=== PATIENT | female | born 1985 | race Caucasian/White ===

== ENCOUNTER → 2019-09-08 10:53 | Outpatient (BNVA) | payer SELFPAY | PROVIDERS: Family Provider Family Medicine; PCP Family Medicine; Visit Provider Nurse Practitioner Family | DX: J11.1 Influenza due to unidentified influenza virus with other respiratory manifestations (principal); K52.9 Noninfective gastroenteritis and colitis, unspecified | CPT/HCPCS: 87804 ==

== ENCOUNTER → 2020-11-06 13:04 | Outpatient (BNVA) | payer OTHER, SELFPAY | PROVIDERS: Family Provider Family Medicine; Referring Provider Preventive Medicine Occupational Medicine; Visit Provider Orthopaedic Surgery | DX: M54.5 Low back pain (principal); M48.8X7 Other specified spondylopathies, lumbosacral region | CPT/HCPCS: 72110 ==

== ENCOUNTER 2020-11-14 07:51 | Outpatient (CLI) | payer OTHER, SELFPAY ==
--- NOTE | 2020-11-14 08:00 | MR_ITS ---
WS: [id number] MRI LUMBAR SPINE NONCONTRAST TECHNIQUE: Sagittal T1, T2 and STIR imaging. Axial T1 and T2 imaging. CLINICAL INFORMATION: LOW BACK SPRAIN S33.5 COMPARISON: None. FINDINGS: Mild lumbar curve. No acute compression. Mild disc bulging L3-L5. Slight retrolisthesis L5 on S1. L1-L2: Normal. L2-L3: Moderate facet arthropathy. Spinal canal and foramen are patent. L3-L4: Left eccentric annular bulging. Impingement traversing left L4 nerve root. Mild bilateral fora evangelist narrowing. Mild to moderate facet arthropathy. L4-L5: Mild annular bulging with a shallow central disc protrusion. Impingement on traversing L5 nerv e roots. Mild right and no significant left foraminal narrowing. Moderate facet arthropathy. L5-S1: Slight retrolisthesis L5 on S1. Right pericentral disc protrusion slightly impinges the fred sing right S1 nerve root. Mild bilateral foraminal narrowing. Moderate facet arthropathy. Visualized pelvic bony structures: Normal. Paravertebral soft tissues: Normal. MR/MR lumbar spine wo con* [id number] IMPRESSION: 1. Mild lumbar curve. No acute compression. 2. Left eccentric disc bulging L3-4 impinges the traversing left L4 nerve root in the subarticular recess. 3. Shallow central disc bulging L4-5 slightly impinges the traversing L5 nerve roots bilaterally. 4. Shallow right pericentral disc protrusion L5-S1 impinges the traversing rig ht S1 nerve root. Recommend correlation for right S1 nerve root symptoms. 5. Mild bony foraminal narrowing more prominent at right L4-5 and bilateral L5 -S1.
== END 2020-11-14 07:52 | disposition home or self-care (01) ==
PROVIDERS: Visit Provider Preventive Medicine Occupational Medicine
DX: S33.5XXA Sprain of ligaments of lumbar spine, initial encounter (principal); X58.XXXA Exposure to other specified factors, initial encounter
CPT/HCPCS: 72148

== ENCOUNTER → 2022-11-13 09:36 | Outpatient (BNVA) | payer MEDICAID, SELFPAY | PROVIDERS: Visit Provider Nurse Practitioner Women's Health | DX: O09.899 Supervision of other high risk pregnancies, unspecified trimester; O10.919 Unspecified pre-existing hypertension complicating pregnancy, unspecified trimester | CPT/HCPCS: 80053; 80307; 81025; 85027; 86592; 86762; 86803; 86850; 86900; 87086; 87340; 87806 ==

== ENCOUNTER 2022-11-20 11:14 | Outpatient (CLI) | payer MEDICAID, SELFPAY ==
[2022-11-20 12:30] LABS: Urine Total Protein 4.5 mg/dL (0-150)
[2022-11-20 12:51] LABS: Total Volume, Urine 1525 mL; Urine Total Protein 24 Hour 68.6 mg/24hr (0-150)
== END 2022-11-20 11:15 | disposition home or self-care (01) ==
LOC: LAB 11:17
PROVIDERS: Visit Provider Nurse Practitioner Women's Health
DX: O09.899 Supervision of other high risk pregnancies, unspecified trimester (principal); O10.919 Unspecified pre-existing hypertension complicating pregnancy, unspecified trimester; Z3A.00 Weeks of gestation of pregnancy not specified
CPT/HCPCS: 84156

== ENCOUNTER → 2022-11-26 08:55 | Outpatient (BNVA) | payer MEDICAID, SELFPAY | PROVIDERS: Visit Provider Obstetrics & Gynecology | DX: O09.899 Supervision of other high risk pregnancies, unspecified trimester (principal) | CPT/HCPCS: 81000; 87491; 87591; 87624 ==

== ENCOUNTER → 2023-01-05 14:26 | Outpatient (BNVA) | payer MEDICAID, SELFPAY | PROVIDERS: Visit Provider Obstetrics & Gynecology | DX: O09.899 Supervision of other high risk pregnancies, unspecified trimester (principal) | CPT/HCPCS: 81000; 87086 ==

== ENCOUNTER → 2023-01-28 15:27 | Outpatient (BNVA) | payer MEDICAID, SELFPAY | PROVIDERS: Visit Provider Obstetrics & Gynecology | DX: O09.899 Supervision of other high risk pregnancies, unspecified trimester (principal) | CPT/HCPCS: 81000 ==

== ENCOUNTER → 2023-03-03 10:20 | Outpatient (BNVA) | payer MEDICAID, SELFPAY | PROVIDERS: Visit Provider Obstetrics & Gynecology | DX: O09.899 Supervision of other high risk pregnancies, unspecified trimester (principal) | CPT/HCPCS: 82950; 84315; 85025 ==

== ENCOUNTER → 2023-03-31 08:00 | Outpatient (BNVA) | payer MEDICAID, SELFPAY | PROVIDERS: Visit Provider Obstetrics & Gynecology | DX: O09.899 Supervision of other high risk pregnancies, unspecified trimester (principal) | CPT/HCPCS: 82951; 82952; 84315 ==

== ENCOUNTER → 2023-04-28 09:16 | Outpatient (BNVA) | payer MEDICAID, SELFPAY | PROVIDERS: Visit Provider Nurse Practitioner Women's Health | DX: O09.899 Supervision of other high risk pregnancies, unspecified trimester (principal) | CPT/HCPCS: 84315; 87081 ==

== ENCOUNTER 2023-05-19 10:47 | Outpatient (CLI) | payer MEDICAID, SELFPAY ==
[2023-05-19 10:47] VITALS: BMI 37.0
[2023-05-19 11:09] VITALS: BP 144/92; PULSE 76
[2023-05-19 11:31] VITALS: BP 164/87; PULSE 75
[2023-05-19 11:50] VITALS: BP 163/87; PULSE 84
[2023-05-19 12:10] VITALS: BP 140/93; PULSE 77
[2023-05-19 12:30] VITALS: BP 174/88; PULSE 87
[2023-05-19 12:50] VITALS: BP 142/84; PULSE 83
== END 2023-05-19 13:00 | disposition home or self-care (01) ==
LOC: OPOB 10:53 → OBGYN 10:54
PROVIDERS: Visit Provider Obstetrics & Gynecology
DX: O16.9 Unspecified maternal hypertension, unspecified trimester (principal); Z3A.00 Weeks of gestation of pregnancy not specified
CPT/HCPCS: 59025; 84315; 99211

== ENCOUNTER 2023-05-20 15:07 | Inpatient (IN) | payer MEDICAID, SELFPAY ==
[2023-05-20] VITALS (26 sets, daily range): BP systolic 133–167; BP diastolic 68–92; PULSE 78–96; RESP 16–18; TEMP 36.3; O2SAT 98–99; BMI 37.0
--- NOTE | 2023-05-20 16:15 | PM.OBGYHP ---
Providers/Chief Complaint Admitting Physician: Bairon Cardoza MD Primary EXCELSIOR MACHINE OPERATOR: Bairon Cardoza MD Chief Complaint: INDUCTION OF LABOR FOR ELEVATED BLOOD PRESSURES HPI EXCELSIOR MACHINE OPERATOR History of Present Illness May 20, 2023, 1615 OB ADMIT NOTE 37 y.o. EDC May 25, 2023 By LMP c/w sono at 39 w 2 d had elevated BPs when seen in clinic and in L&D on May 18, 2023 now admitted for labor induction no c/o no headaches, malaise, swelling no bleeding, fluid leakage + active movements POBHx: x one, uncomplicated PSHx: appendectomy Lumbar discectomy Meds: baby asa Vits NKDA Present Details : 2 Para: 1 Labs Rubella: Immune RPR: Negative GBS: Negative Medications/Allergies Home Medications Medication Instructions Recorded Confirmed Last Taken Type aspirin 325 mg tablet 325 mg PO DAILY 01/05/23 05/19/23 Unknown History prenat.vits,neil,bqd-biev-hkzkf 1 tab PO DAILY 01/05/23 05/19/23 Unknown History famotidine 20 mg tablet 20 mg PO BID #60 tabs 03/03/23 05/19/23 Unknown Rx magnesium 250 mg tablet 250 mg PO DAILY 05/05/23 05/19/23 Unknown History Allergies Allergy/AdvReac Type Severity Reaction Status Date / Time No Known Allergies Allergy Verified 05/19/23 09:50 PFSH EXCELSIOR MACHINE OPERATOR PFSH: Medical History Irregular menstrual bleeding No pertinent past medical history neghx: thyroid,dm,dvt/pe PCP: None Surgical History History of appendectomy History of lumbar discectomy L4-L5, L5-S1 Family History Denies family history of Colon cancer Ovarian cancer Diabetes Heart disease Hyperlipidemia Breast cancer Hypertension Uterine cancer Thyroid disease Stroke History History History 2 Term 1 0 Miscarriages/Ectopic 0 Living Children 1 Care HAI Calculator Estimated Delivery Date Method Current WG Current Estimate 05/25/23 LMP (Certain) 39w 2d Vitals/I&O/Wt Last Vital Signs Temp 97.3 F L 05/20/23 15:39 Pulse 91 05/20/23 21:20 Resp 18 05/20/23 17:25 BP 137/68 05/20/23 21:20 Pulse Ox 98 05/20/23 20:42 O2 Del Method Room Air 05/20/23 16:06 Weight last 48 hrs Weight 223 lb Weight 223 lb Physical Exam Narrative: Weight 220 lbs; 5?5? BPs 146 / 89, 140 / 79 Comfortable Awake, alert Lungs: clear Cor: RRR Abd: soft, nontender FH 37 cm, cephalic Cx: 1 cm / thick / high Ext: no edema External monitor: heart tracing good variability, + accelerations Data 05/20/23 15:45 Results Labs OB ([facility]): Obstetrics US 01/01/23 Blood Type O Positive 11/13/22 Antibody Screen Negative 11/13/22 Hct 36.3 % (36-47) 05/20/23 Hgb 11.90 g/dL (11.27-16.99) 05/20/23 Rho(D) Type Positive 11/13/22 Plt Count 288 10^3/cmm (157-399) 05/20/23 Hep Bs Antigen Non-reactive (Nonreactive) 11/13/22 Hepatitis C Antibody Non-reactive (Nonreactive) 11/13/22 Rubella IgG Antibody 76.4 IU/mL (0.0-10.0) H 11/13/22 RPR Nonreactive (Nonreactive) 11/13/22 HIV 1&2 Ab & HIV 1 Ag Non-reactive (Non-Reactiv) 11/13/22 Gest Glucose Tolerance mg/dL 03/31/23 HCG, Qual Positive (Negative) H 11/13/22 Urine Opiates Screen Negative ng/mL (Negative) 11/13/22 Ur Barbiturates Screen Negative ng/mL (Negative) 11/13/22 Ur Phencyclidine Scrn Negative ng/mL (Negative) 11/13/22 Ur Amphetamines Screen Negative ng/mL (Negative) 11/13/22 U Benzodiazepines Scrn Negative ng/mL (Negative) 11/13/22 Urine Cocaine Screen Negative ng/mL (Negative) 11/13/22 U Marijuana (THC) Screen Negative ng/mL (Negative) 11/13/22 Micro Urine Specimen 01/05/23 Pap Smear Interpret See note 05/24/23 A&P Assessment and plan (1) Supervision of other high-risk : 39 w 2 d GBS negative (2) Hypertension affecting : Elevated BPs, mild Admitted for labor induction Plan Cytotec 25 ug intravaginal Attestations Medical Necessity Statement*: patient at 39 w 2 d, with mildly elevated BPs, admit for labor induction Coding Level of Care Code Acute Code for Chg Fwd Diagnoses Supervision of other high-risk O09.899 Hypertension affecting O16.9 Time Spent (min) 30
[2023-05-20] MEDS: miSOPROStol 100 mcg tablet 25 MCG VAGINAL ×2 (16:33→21:31)
[2023-05-20 16:53] LABS: Basophils % 0.2 %; Eosinophils # 0.1 10^3/uL (0.0-0.8); Eosinophils % 0.6 %; Hematocrit 36.3 % (36-47); Lymphocytes # 1.8 10^3/uL (0.8-4.8); Lymphocytes % 17.6 %; Mean Corpuscular HGB Conc 32.8 g/dL (30-55); Mean Corpuscular Hemoglobin 29.2 pg (27-33); Mean Platelet Volume 10.6 fL (7.4-10.4); Monocytes # 0.7 10^3/uL (0.2-0.9); Monocytes % 6.5 %; Neutrophils # 7.58 10^3/uL (1.8-7.7); Neutrophils % 74.5 %; Nucleated Red Blood Cells % 0 %; Platelet Count 288 10^3/cmm (157-399); Red Blood Count 4.08 10^6/uL (3.85-5.65); Red Cell Distribution Width 13.3 % (12.1-15.1); White Blood Count 10.17 10^3/uL (3.29-11.43)
--- NOTE | 2023-05-20 20:50 | P.PN_ITS ---
LATHE OPERATOR CONTACT LENS Subjective Subjective: Interval history: Fetus reassuring BPs 153 / 78, 157 / 80 UCs q 2-3 minutes, but patient not feeling these Cervix: 1 cm / 25% / -3 / posterior Plan repeat Cytotec 25 ug intravaginal Labor: Station: -3 Amniotic Membrane Status: Intact Monitor Mode: External Contraction Pattern: Rare Status: Category I Vitals/I&O/Wt Last Vital Signs Temp 97.3 F L 05/20/23 15:39 Pulse 90 05/20/23 21:40 Resp 18 05/20/23 17:25 BP 140/69 05/20/23 21:40 Pulse Ox 98 05/20/23 20:42 O2 Del Method Room Air 05/20/23 16:06 Weight last 48 hrs Weight 223 lb Weight 223 lb Data 05/20/23 15:45 Attestations Medical Necessity Statement*: patient at 39 w 2d; with mildly elevated BPs, admitted for labor induction Coding Level of Care Code Acute Code for Chg Fwd Diagnoses Time Spent (min) 20
[2023-05-21] VITALS (53 sets, daily range): BP systolic 124–189; BP diastolic 70–104; PULSE 68–109; RESP 16–17; TEMP 36.7–37.1; O2SAT 97–100; BMI 37.0
[2023-05-21] MEDS: dextrose 5%-lactated ringers 1,000 ML 125 ML IV (02:11)
[2023-05-21] MEDS: oxytocin 30 UNIT/500 ML BAG IV (02:11)
[2023-05-21] MEDS: lactated ringers 1,000 ML 999 ML IV ×2 (03:53→04:56)
[2023-05-21] MEDS: NIFEdipine ER (24 hr) 30 mg Tablet PO (04:32)
[2023-05-21] MEDS: ROPivacaine syringe 100 MG/50 ML SYRINGE 10 MG EPIDURAL (05:02)
--- NOTE | 2023-05-21 05:03 | P.ANES_ITS ---
Anesthesia Procedures Procedure/Date: 05/21/23 Epidural: Time Out Performed: Yes Consents Signed: Procedure Consent Consent: from patient, risks and benefits reviewed and patient agrees to proceed Lumbar Level: L3-L4 Epidural position: sitting Epidural procedure: sterile prep of area, 1% lidocaine to numb the area, 18 g needle, negative for p aresthesia passed, neg for paresthesia, test dose given, 1.5% xylocaine 1:200k epi, placed PCEA, no systemic response, sterile dressing applied, L.U.D. no apparent complications and 0.2% Ropiavacaine @ mls/hr (10) Additional Comments: CRISTELA at 4.5. negative blood/CSF upon apsiration. taped at 12 at skin.
--- NOTE | 2023-05-21 05:04 | ANES.PREANE2 ---
Pre-Anesthetic Assessment Height/Weight: Height 1.65 m Weight 101.151 kg Temp Pulse Resp BP Pulse Ox O2 Del Method 97.3 F L 82 16 176/104 99 Room Air 05/20/23 15:39 05/21/23 04:59 05/20/23 20:55 05/21/23 04:59 05/21/23 04:58 05/20/23 16:06 Preop Diagnosis: IUP epidural Familial anesthetic complications: none Was Beta Catarino taken within 24 hours: N/A Was Clonidine taken within 24 hours: N/A Social No alcohol and No tobacco Exam alert and oriented x 3 Airway Submandibular: within normal limits Cervical ROM: within normal limits Mallampati: Class II Dentition: full History/ROS No significant history except as noted CV/HEM Hypertension (gestational) GI Gastroesophageal Reflux Disease Anesthetic Plan ASA status: 3 Anesthesia: Anesthesia Evaluation and Regional (specify below) Medications/Allergies Home Medications Medication Instructions Recorded Confirmed Last Taken Type aspirin 325 mg tablet 325 mg PO DAILY 01/05/23 05/19/23 Unknown History prenat.vits,neil,luz-qsoi-xhwft 1 tab PO DAILY 01/05/23 05/19/23 Unknown History famotidine 20 mg tablet 20 mg PO BID #60 tabs 03/03/23 05/19/23 Unknown Rx magnesium 250 mg tablet 250 mg PO DAILY 05/05/23 05/19/23 Unknown History Allergies Allergy/AdvReac Type Severity Reaction Status Date / Time No Known Allergies Allergy Verified 05/19/23 09:50 Current Medications Generic Name Dose Route Start Last Admin Trade Name Freq PRN Reason Stop Dose Admin Dextrose/Lactated Ringer's 1,000 mls @ 125 mls/hr 05/20/23 21:00 05/21/23 03:53 Dextrose 5%-Lactated Ringers IV 0 mls/hr .Q8H SAVANNA Infusion Lactated Ringer's 1,000 mls @ 999 mls/hr 05/20/23 20:59 05/21/23 04:56 Lactated Ringers IV 999 mls/hr .Q1H1M PRN Administration See label comments Ropivacaine 100 mg in 50 mls @ 10 mls/hr 05/20/23 21:00 05/21/23 05:02 Naropin Syringe EPIDURAL 10 mls/hr .Q5H SAVANNA Administration Oxytocin 30 unit in 500 mls @ 1 mls/hr 05/21/23 01:45 05/21/23 03:15 Pitocin IV 4 milliunit/min .Q24H SAVANNA 4 mls/hr Titration Protocol 1 MILLIUNIT/MIN PFSH Anesthesia Medical History Irregular menstrual bleeding No pertinent past medical history neghx: thyroid,dm,dvt/pe PCP: None Surgical History History of appendectomy History of lumbar discectomy L4-L5, L5-S1 Family History Denies family history of Colon cancer Ovarian cancer Diabetes Heart disease Hyperlipidemia Breast cancer Hypertension Uterine cancer Thyroid disease Stroke Female Reproductive History : 2 Data Anesthesia 05/20/23 15:45 Short CBC 05/20/23 Range/Units 15:45 WBC 10.17 (3.29-11.43) 10^3/uL Hgb 11.90 (11.27-16.99) g/dL Hct 36.3 (36-47) % MCV 89.0 (85-98) fl Plt Count 288 (157-399) 10^3/cmm Neut % (Auto) 74.5 % Neut # (Auto) 7.58 (1.8-7.7) 10^3/uL Cardiac Studies: No Data to Display
[2023-05-21] MEDS: ondansetron 2 mg/ML SDV 2 mL 4 MG IVP (05:13)
[2023-05-21] MEDS: oxytocin 30 UNIT/500 ML BAG 600 UNIT IV (06:31)
--- NOTE | 2023-05-21 06:40 | P.PN_ITS ---
GEAR MILLING MACHINE SET UP OPERATOR Subjective Subjective: Interval history: May 21, 2023, 0640 DELIVERY NOTE , vigorous Normal placenta and cord Second-degree perineal laceration repaired EBL: 300 cc No complications Labor: Station: +2 Amniotic Membrane Status: Ruptured Monitor Mode: External Contraction Pattern: Irregular Status: Category I Vitals/I&O/Wt Last Vital Signs Temp 98.2 F 05/22/23 12:40 Pulse 86 05/22/23 12:40 Resp 16 05/22/23 12:40 BP 150/92 05/22/23 12:40 Pulse Ox 97 05/21/23 22:40 O2 Del Method Room Air 05/21/23 22:40 Weight last 48 hrs Weight 223 lb Physical Exam Urinary Catheter Management: Corado: Cath Placed During This Visit: yes, but has since been removed by the nurse Reason for Continuing Indwelling Catheter: Accurate Measurement of Urinary Output in Critically Ill Patients Urinary Catheter Date of Insertion: 05/21/23 Urinary Catheter Time of Insertion: 05:30 Date Urinary Catheter Removed: 05/21/23 Time Urinary Catheter Discontinued: 06:13 Data 05/21/23 21:35 A&P Assessment and plan (1) Vaginal delivery: (2) Second degree perineal laceration: repaired Attestations Medical Necessity Statement*: patient s/p vaginal delivery, plan care Coding Level of Care Code Acute Code for Chg Fwd Diagnoses Vaginal delivery O80 Second degree perineal laceration O70.1 Time Spent (min) 60
--- NOTE | 2023-05-21 06:40 | PM.DELIVERY ---
Delivery Note: Date of delivery: May 21, 2023 Pre-delivery diagnoses: 39 w 2 d elevated BPs admitted for labor induction Post-delivery diagnoses: 39 w 2 d elevated BPs admitted for labor induction vaginal delivery second-degree perineal laceration repaired Procedure: labor induction vaginal delivery second-degree perineal laceration repaired Op report anesthesia: Epidural Delivering Physician: Bairon Cardoza MD Estimated blood loss (mL): 300 Findings: , vigorous Normal placenta and cord Second-degree perineal laceration repaired EBL: 300 cc No complications Pre-Delivery Course: normal labor progress Delivery: vaginal Post-Delivery Status: good History History History 2 Term 1 0 Miscarriages/Ectopic 0 Living Children 1 A&P Assessment and plan (1) Vaginal delivery: (2) Second degree perineal laceration: repaired Coding Level of Care Code Acute Code for Chg Fwd Diagnoses Vaginal delivery O80 Second degree perineal laceration O70.1 Time Spent (min) 60
--- NOTE | 2023-05-21 08:06 | PM.MISC ---
Miscellaneous Note Purpose of Documentation: pain Note: Pain of contraction increasing, bupivicaine 0.25% 10 cc and catheter tugged back a cm with adequate response, patient elected to continue with current epidural over replacing it
[2023-05-21] MEDS: docusate sodium 100 mg Capsule PO ×2 (09:24→20:48)
[2023-05-21] MEDS: ibuprofen 800 mg tablet PO ×3 (09:24→20:48)
[2023-05-21] MEDS: prenatal vitamin Capsule 1 CAP PO (09:25)
[2023-05-21 22:09] LABS: Hematocrit 34.7 % (36-47); Mean Corpuscular HGB Conc 32.9 g/dL (30-55); Mean Corpuscular Volume 88.3 fl (85-98); Mean Platelet Volume 10.4 fL (7.4-10.4); Platelet Count 248 10^3/cmm (157-399); Red Blood Count 3.93 10^6/uL (3.85-5.65); Red Cell Distribution Width 13.2 % (12.1-15.1); White Blood Count 15.78 10^3/uL (3.29-11.43)
[2023-05-22 04:32] VITALS: BP 154/95; PULSE 101; RESP 16; TEMP 36.7
[2023-05-22 04:48] VITALS: BP 146/89
--- NOTE | 2023-05-22 08:00 | ANE.PACU2 ---
Inpatient post-anesthesia follow up: Airway intact: Yes Vital signs: Temperature 98.2 F Pulse Rate 86 Respiratory Rate 16 Blood Pressure 150/92 Pulse Oximetry 97 Oxygen Delivery Me thod Room Air Oxygen Flow Rate Fraction of Inspir ed Oxygen Hydration adequate: Yes Nausea and vomiting: No Pain level: 1 Mental status: Baseline
[2023-05-22] MEDS: docusate sodium 100 mg Capsule PO (08:47)
[2023-05-22] MEDS: prenatal vitamin Capsule 1 CAP PO (08:47)
[2023-05-22] MEDS: ibuprofen 800 mg tablet PO (08:48)
[2023-05-22 09:05] VITALS: BP 156/95; PULSE 78; RESP 16; TEMP 36.7
--- NOTE | 2023-05-22 11:50 | P.DS_ITS ---
Discharge Providers DOUGHNUT ICER MACHINE Date of Admission: 05/20/23 15:07 Date of Discharge: 05/22/23 Attending Provider at Admission: Bairon Cardoza MD Attending Provider at Discharge: Bairon Cardoza MD Consults: none Primary DOUGHNUT ICER MACHINE: Bairon Cardoza MD Diagnoses at Discharge Discharge Diagnosis (1) Vaginal delivery: Details from hospital stay: patient admitted at 39 w 2 d for labor induction due to elevated BPs had normal labor progress vaginal delivery with second-degree perineal laceration repaired patient did well and was discharged home on day #1 Status: Acute Reason for Visit Reason for Visit: INDUCTION OF LABOR FOR ELEVATED BLOOD PRESSURES Brief History: 37 y.o. EDC May 25, 2023 at 39 w 2 d had elevated BPs when seen in clinic and in L&D on May 18, 2023 admitted for labor induction Hospital Course Hospital Course had normal labor progress vaginal delivery with second-degree perineal laceration repaired patient did well and was discharged home on day #1 Information Peripartum Data: Delivery Method: Vaginal Laceration description: Perineal - 2nd Degree Episiotomy description: None complications: none Physical Exam Narrative: afebrile, VS normal comfortable, awake, alert Abd: soft, nontender. fundus firm Ext: no edema; nontender Urinary Catheter Management: Corado: Cath Placed During This Visit: yes, but has since been removed by the nurse Reason for Continuing Indwelling Catheter: Accurate Measurement of Urinary Output in Critically Ill Patients Urinary Catheter Date of Insertion: 05/21/23 Urinary Catheter Time of Insertion: 05:30 Date Urinary Catheter Removed: 05/21/23 Time Urinary Catheter Discontinued: 06:13 History History History 2 Term 1 0 Miscarriages/Ectopic 0 Living Children 1 Discharge Data Studies Completed and Pending Laboratory Results WBC 15.78 10^3/uL (3.29-11.43) H 05/21/23 21:35 RBC 3.93 10^6/uL (3.85-5.65) 05/21/23 21:35 Hgb 11.40 g/dL (11.27-16.99) 05/21/23 21:35 Hct 34.7 % (36-47) L 05/21/23 21:35 MCV 88.3 fl (85-98) 05/21/23 21:35 MCH 29.0 pg (27-33) 05/21/23 21:35 MCHC 32.9 g/dL (30-55) 05/21/23 21:35 RDW 13.2 % (12.1-15.1) 05/21/23 21:35 Plt Count 248 10^3/cmm (157-399) 05/21/23 21:35 MPV 10.4 fL (7.4-10.4) 05/21/23 21:35 Neut % (Auto) 74.5 % 05/20/23 15:45 Lymph % (Auto) 17.6 % 05/20/23 15:45 Piatt % (Auto) 6.5 % 05/20/23 15:45 Eos % (Auto) 0.6 % 05/20/23 15:45 Baso % (Auto) 0.2 % 05/20/23 15:45 Neut # (Auto) 7.58 10^3/uL (1.8-7.7) 05/20/23 15:45 Lymph # (Auto) 1.8 10^3/uL (0.8-4.8) 05/20/23 15:45 Piatt # (Auto) 0.7 10^3/uL (0.2-0.9) 05/20/23 15:45 Eos # (Auto) 0.1 10^3/uL (0.0-0.8) 05/20/23 15:45 Baso # (Auto) 0.0 10^3/uL (0.0-0.1) 05/20/23 15:45 Nucleated RBC % (auto) 0 % 05/20/23 15:45 Nucleated RBCs # 0.0 /100WBC 05/20/23 15:45 Blood Type Cancelled 05/20/23 15:45 Rho(D) Type Cancelled 05/20/23 15:45 Antibody Screen Cancelled 05/20/23 15:45 Procedures Performed labor induction vaginal delivery second-degree perineal laceration repaired Vitals Last Vital Signs Temp 98.2 F 05/22/23 12:40 Pulse 86 05/22/23 12:40 Resp 16 05/22/23 12:40 BP 150/92 05/22/23 12:40 Pulse Ox 97 05/21/23 22:40 O2 Del Method Room Air 05/21/23 22:40 Results Labs OB ([facility]): Obstetrics US 01/01/23 Blood Type O Positive 11/13/22 Antibody Screen Negative 11/13/22 Hct 34.7 % (36-47) L 05/21/23 Hgb 11.40 g/dL (11.27-16.99) 05/21/23 Rho(D) Type Positive 11/13/22 Plt Count 248 10^3/cmm (157-399) 05/21/23 Hep Bs Antigen Non-reactive (Nonreactive) 11/13/22 Hepatitis C Antibody Non-reactive (Nonreactive) 11/13/22 Rubella IgG Antibody 76.4 IU/mL (0.0-10.0) H 11/13/22 RPR Nonreactive (Nonreactive) 11/13/22 HIV 1&2 Ab & HIV 1 Ag Non-reactive (Non-Reactiv) 11/13/22 Gest Glucose Tolerance mg/dL 03/31/23 HCG, Qual Positive (Negative) H 11/13/22 Urine Opiates Screen Negative ng/mL (Negative) 11/13/22 Ur Barbiturates Screen Negative ng/mL (Negative) 11/13/22 Ur Phencyclidine Scrn Negative ng/mL (Negative) 11/13/22 Ur Amphetamines Screen Negative ng/mL (Negative) 11/13/22 U Benzodiazepines Scrn Negative ng/mL (Negative) 11/13/22 Urine Cocaine Screen Negative ng/mL (Negative) 11/13/22 U Marijuana (THC) Screen Negative ng/mL (Negative) 11/13/22 Micro Urine Specimen 01/05/23 Pap Smear Interpret See note 11/26/22 Discharge Plan Discharge Patient Disposition: Home Condition: Stable Prescriptions: Continued prenat.vits,neil,rac-cicv-yxtma Tablet 1 tab PO DAILY famotidine 20 mg tablet 20 mg PO BID Qty: 60 2RF magnesium 250 mg tablet 250 mg PO DAILY Discontinued aspirin 325 mg tablet 325 mg PO DAILY Discharge Orders: Discharge Order (Routine); Ordered 05/22/23 Ordered By: Bairon Cardoza Referrals: Bairon Cardoza MD [Physician] - 6 Weeks (6 WEEKS FOLLOW UP APPOINTMENT June AT 3PM) Discharge Diet: Usual diet Discharge Activity: Resume usual activity Patient Instructions: Depression (GEN), Abnormal (Dysfunctional) Uterine Bleeding (GEN), Bleeding (GEN), Preeclampsia and Eclampsia After Delivery (GEN), OB Food/Drug Interaction Guide, OB Care at Home, Opioid Safety, OB Proud Parent Packet, OB Vaginal Deliveries, OB Vaginal Deliveries - [facility], Abnormal Bleeding Discharge Attestations DOUGHNUT ICER MACHINE Time Spent in Discharge Care*: less than 30 min Coding Level of Care Code Acute Code for Chg Fwd Diagnoses Vaginal delivery O80 Time Spent (min) 20
--- NOTE | 2023-05-22 11:50 | PM.OBGYPN ---
LOCKSTITCH MACHINE OPERATOR Subjective Subjective: Interval history: no c/o no bleeding, pain eating, voiding, ambulating well caring for without any problems Labor: Station: +2 Amniotic Membrane Status: Ruptured Monitor Mode: External Contraction Pattern: Irregular Status: Category I Vitals/I&O/Wt Last Vital Signs Temp 98.2 F 05/22/23 12:40 Pulse 86 05/22/23 12:40 Resp 16 05/22/23 12:40 BP 150/92 05/22/23 12:40 Pulse Ox 97 05/21/23 22:40 O2 Del Method Room Air 05/21/23 22:40 Weight last 48 hrs Weight 223 lb Physical Exam Narrative: afebrile, VS normal comfortable, awake, alert Abd: soft, nontender. fundus firm Ext: no edema; nontender Urinary Catheter Management: Corado: Cath Placed During This Visit: yes, but has since been removed by the nurse Reason for Continuing Indwelling Catheter: Accurate Measurement of Urinary Output in Critically Ill Patients Urinary Catheter Date of Insertion: 05/21/23 Urinary Catheter Time of Insertion: 05:30 Date Urinary Catheter Removed: 05/21/23 Time Urinary Catheter Discontinued: 06:13 Data 05/21/23 21:35 A&P Assessment and plan (1) Vaginal delivery: PPD #1 doing well discharge home today instructions and precautions given call/return if fever, chills, headache, blurry vision, nausea, vomiting, abdominal pain; vaginal bleeding or discharge; shortness of breath, chest pain, leg pains or swelling; inability to void, perineal pain or swelling; feelings of depression or mood changes; thoughts of suicide or harming others; inability to care for baby. f/u in 6 weeks or PRN Attestations Medical Necessity Statement*: patient s/p vaginal delivery, plan discharge home today Coding Level of Care Code Acute Code for Chg Fwd Diagnoses Vaginal delivery O80 Time Spent (min) 20
[2023-05-22 12:40] VITALS: BP 150/92; PULSE 86; RESP 16; TEMP 36.8
== END 2023-05-22 12:45 | disposition home or self-care (01) | DRG 807 ==
LOC: OBGYN 15:08
PROVIDERS: Absent Provider Obstetrics & Gynecology; Admitting Provider Obstetrics & Gynecology; Referring Provider Obstetrics & Gynecology; Visit Provider Obstetrics & Gynecology
DX: O16.4 Unspecified maternal hypertension, complicating childbirth (principal); Z37.0 Single live birth; O70.1 Second degree perineal laceration during delivery; Z3A.39 39 weeks gestation of pregnancy
CPT/HCPCS: 36415; 51702; 59025; 59409; 85025; 85027; J2405; J2590; J2795; J7120; J7121

== ENCOUNTER 2023-07-09 08:49 | Day surgery (SDC) | payer MEDICAID, SELFPAY ==
--- NOTE | 2023-07-08 19:53 | W.PM.OPSFHP ---
Same Day Surgery H&P Indication for Procedure/HPI DATE OF PROCEDURE: July 09, 2023 CHIEF COMPLAINT/INDICATIONFOR SURGICAL PROCEDURE: Desires permanent sterilization PREOP DIAGNOSIS: Desires permanent sterilization PLANNED PROCEDURE: Operation Date: 07/09/23 10:05 Proposed Procedures p Laparoscopic bilateral partial salpingectomy 98441,Z30.2(Bilateral) - Bairon Cardoza MD 37 y.o. wants permanent sterilization now scheduled for laparoscopic bilateral partial salpingectomy Medications/Allergies* Home Medications Medication Instructions Recorded Confirmed Type prenat.vits,neil,yhb-ivjx-nwmfi 1 tab PO DAILY 01/05/23 07/08/23 History Allergies/Adverse Reactions Allergy/AdvReac Type Severity Reaction Status Date / Time No Known Allergies Allergy Verified 07/08/23 11:22 Pertinent History/Comorbid Conditions* Medical History (Updated 06/18/23 @ 18:00 by Bairon Cardoza MD) Vaginal delivery Second degree perineal laceration Hypertension affecting Supervision of other high-risk No pertinent past medical history neghx: thyroid,dm,dvt/pe PCP: None Irregular menstrual bleeding Surgical History (Updated 01/24/22 @ 11:10 by Vita Watts DO) History of appendectomy History of lumbar discectomy L4-L5, L5-S1 Family History (Updated 11/13/22 @ 09:58 by Sayda Arias LPN) Denies family history of Colon cancer Ovarian cancer Diabetes Heart disease Hyperlipidemia Breast cancer Hypertension Uterine cancer Thyroid disease Stroke Pertinent Exam Findings alert, oriented x 3, clear to auscultation bilaterally and regular rate & rhythm Recommendations Surgery/Procedure today Coding Level of Care Code Acute Code for Chg Fwd Time Spent (min) 20
[2023-07-09] VITALS (11 sets, daily range): BP systolic 147–187; BP diastolic 89–104; PULSE 60–103; RESP 15–17; TEMP 36.1–36.6; O2SAT 94–97; BMI 34.8
[2023-07-09 09:21] LABS: OR HCG Qualitative Urine Negative (Negative)
[2023-07-09] MEDS: sodium chloride 0.9% 1,000 ML 30 ML IV (09:41)
[2023-07-09] MEDS: scopolamine 1.5 Patch 1 PATCH TRANSDERMA (09:41)
[2023-07-09] MEDS: ondansetron 2 mg/ML SDV 2 mL 4 MG IVP ×3 (09:42→11:55)
--- NOTE | 2023-07-09 09:58 | W.PM.OPSUD ---
Surgery/Procedure H&P Update DATE OF PROCEDURE: July 09, 2023 DATE H&P PERFORMED: 06/17/23 H&P UPDATE INFORMATION: I have reviewed H&P completed within last 30 days, I have examined patient prior to procedure and No changes to prior documentation PREOP DIAGNOSIS: Desires permanent sterilization PRIMARY INDICATION FOR PROCEDURE: desires permanent sterilization PLANNED PROCEDURE: Operation Date: 07/09/23 10:05 Proposed Procedures p Laparoscopic bilateral partial salpingectomy 90125,Z30.2(Bilateral) - Bairon Cardoza MD
--- NOTE | 2023-07-09 11:03 | ANES.PREANE2 ---
Pre-Anesthetic Assessment Height/Weight: Height 1.65 m Weight 95 kg Temp Pulse Resp BP Pulse Ox O2 Del Method 97.5 F L 75 16 147/94 97 Room Air 07/09/23 09:08 07/09/23 09:08 07/09/23 09:08 07/09/23 09:08 07/09/23 09:08 07/09/23 09:16 Preop Diagnosis: Desires permanent sterilization Operation Date: 07/09/23 10:05 Proposed Procedures p Laparoscopic bilateral partial salpingectomy 66504,Z30.2(Bilateral) - Bairon Cardoza MD Familial anesthetic complications: none Was Beta Catarino taken within 24 hours: N/A Was Clonidine taken within 24 hours: N/A Last intake: Intake Last Liquid Date 07/08/23 Last Liquid Time 22:00 Last Solid Date 07/08/23 Last Solid Time 21:00 Social No alcohol and No tobacco Exam alert, oriented x 3, clear to auscultation bilaterally and regular rate & rhythm Airway Submandibular: within normal limits Cervical ROM: within normal limits Mallampati: Class II Dentition: full GI Gastroesophageal Reflux Disease Anesthetic Plan ASA status: 2 Anesthesia: General Medications/Allergies Home Medications Medication Instructions Recorded Confirmed Last Taken Type prenat.vits,neil,nto-ughv-letqb 1 tab PO DAILY 01/05/23 07/08/23 07/08/23 History famotidine 20 mg tablet 20 mg PO BID #60 tabs 03/03/23 07/08/23 07/08/23 Rx Allergies Allergy/AdvReac Type Severity Reaction Status Date / Time No Known Allergies Allergy Verified 07/08/23 11:22 Current Medications Generic Name Dose Route Start Last Admin Trade Name Freq PRN Reason Stop Dose Admin Sodium Chloride 1,000 mls @ 30 mls/hr 07/09/23 09:00 07/09/23 09:41 Sodium Chloride 0.9% IV 07/10/23 08:59 30 mls/hr .Q24H SAVANNA Administration Ondansetron HCl 4 mg 07/09/23 08:54 07/09/23 09:42 Ondansetron 2 Mg/Ml Sdv 2 Ml IVP 4 mg ONCE PRN Administration NAUSEA AND VOMITING PFSH Anesthesia Medical History (Updated 06/18/23 @ 18:00 by Bairon Cardoza MD) Vaginal delivery Second degree perineal laceration Hypertension affecting Supervision of other high-risk No pertinent past medical history neghx: thyroid,dm,dvt/pe PCP: None Irregular menstrual bleeding Surgical History History of appendectomy History of lumbar discectomy L4-L5, L5-S1 Family History Denies family history of Colon cancer Ovarian cancer Diabetes Heart disease Hyperlipidemia Breast cancer Hypertension Uterine cancer Thyroid disease Stroke Female Reproductive History Date of last menstrual period: 08/25/22 Data Anesthesia Cardiac Studies: No Data to Display
--- NOTE | 2023-07-09 11:45 | P.OP_ITS ---
Operative Report Date of procedure: July 09, 2023 Pre-op diagnosis: desires permanent sterilization Post-op diagnosis: same Post-op findings: normal uterus, tubes, and ovaries Procedure done: laparoscopic bilateral partial salpingectomy Implants: none Specimens removed/disposition: bilateral fallopian tube segments, sent to pathology Surgeon: Bairon Cardoza MD Anesthesia: General Estimated blood loss (mL): 0 Complications: none Condition: stable Disposition: PACU Brief History: 38 y.o. desires permanent sterilization Procedure: Informed consent was obtained. The patient was taken to the OR and placed on the table.? General endotracheal anesthesia was induced.? The patient was placed in dorsolithotomy position.? The abdomen and perineum were then prepped and draped in the usual fashion.? A 5 mm subumbilical skin incision was made.? A 5 mm trocar with sheath was then inserted into the peritoneal cavity under direct visualization with the laparoscope.? After confirming intraperitoneal position, pneumoperitoneum was achieved.? Two separate 5 mm incisions were made in the right and left mid- quadrants.? 5 mm trocars with sheaths were then inserted into the peritoneal cavity under direct visualization with the laparoscope. The right fallopian tube was then identified to its fimbrial end.? Starting at the fimbrial end, the mesosalpinx was then coagulated and cut using the Ligasure device.? A 3-4 cm portion of the right fallopian tube was excised and removed via one of the ports.? This was sent to pathology.? There was no bleeding seen. Similarly, the left fallopian tube was identified to its fimbrial end.? A 3-4 cm portion of the left fallopian tube was excised and removed, sent to pathology.? There was no bleeding. All instruments were then removed from the peritoneal cavity after the pneumoperitoneum was allowed to escape.? The skin incisions were closed using 3- O chromic in subcuticular fashion.? Dermabond was applied.? The patient was then placed supine and awakened, taken to the PACU in good condition. Postoperative condition:? good EBL:? 0 cc Complications:?? none Sponge, needles, and instrument counts were correct x two
--- NOTE | 2023-07-09 12:40 | SUR.PHASEII ---
ABDOMEN INCISIONS DRY AND INTACT. NO DRAINAGE NOTED.
--- NOTE | 2023-07-09 13:18 | ANE.PACU2 ---
Inpatient post-anesthesia follow up: Airway intact: Yes Vital signs: Temperature 97.8 F Pulse Rate 61 Respiratory Rate 16 Blood Pressure 153/89 Pulse Oximetry 96 Oxygen Delivery Me thod Room Air Oxygen Flow Rate 6 Fraction of Inspir ed Oxygen Hydration adequate: Yes Nausea and vomiting: No Pain level: 2 Mental status: Baseline
== END 2023-07-09 13:00 | disposition home or self-care (01) ==
PROVIDERS: Anesthesiology; Visit Provider Obstetrics & Gynecology
PROC: (CPT 58661; principal; 2023-07-09 09:55)
DX: Z30.2 Encounter for sterilization (principal)
CPT/HCPCS: 58661; 81025; 84703; 88302; A4216; J1100; J1885; J2405; J2704; J2710; J3010; J3490; J7030